=== PATIENT | male | born 1985 | race Caucasian/White ===

== ENCOUNTER 2021-10-24 22:02 | Emergency (ER) | payer OTHER, BC, SELFPAY ==
--- NOTE | ~2021-10-24 | XR_ITS ---
XR ankle RT min 3V DATE: 10/24/2021 23:48 INDICATION: Right ankle pain TECHNIQUE: 3 views COMPARISON: 03/13/2016 right lower leg FINDINGS: Mild medial soft tissue swelling. Minimal medial subcutaneous emphysema is suggested. No fr acture or dislocation of the ankle or disruption of the ankle mortise is detected. IMPRESSION: Mild medial soft tissue swelling, minimal medial subcutaneous emphysema No fracture or dislocation. Reviewed, dictated and finalized at location A. IMPRESSION: Mild medial soft tissue swelling, minimal medial subcutaneous emphy sema No fracture or dislocation.
[2021-10-24 22:16] VITALS: BP 162/89; PULSE 87; RESP 17; TEMP 36.7; O2SAT 100
[2021-10-24] MEDS: TETANUS,DIPHTHERIA,AC PERTUSSIS ADULT (0.5 ML) BOOSTRIX IM (23:50)
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
[2021-10-25] MEDS: IBUPROFEN 400 MG TABLET 800 MG PO (00:43)
[2021-10-25 01:45] VITALS: BP 160/82; PULSE 82; RESP 16; O2SAT 100
== END 2021-10-25 01:48 | disposition home or self-care (01) ==
PROVIDERS: Emergency Provider Nurse Practitioner Family
DX: S91.011A Laceration without foreign body, right ankle, initial encounter (principal); S93.401A Sprain of unspecified ligament of right ankle, initial encounter; Z23 Encounter for immunization; V86.56XA Driver of dirt bike or motor/cross bike injured in nontraffic accident, initial encounter
CPT/HCPCS: 12002; 73610; 90471; 90715; 99283; A9270

== ENCOUNTER 2022-03-22 16:59 | Emergency (ER) | payer OTHER, BC, SELFPAY ==
--- NOTE | ~2022-03-22 | XR_ITS ---
XR ankle RT min 3V DATE: 03/22/2022 18:04 INDICATION: Right ankle pain, laceration TECHNIQUE: Portable 4 view examination COMPARISON: 10/24/2021 right ankle FINDINGS: Mild medial soft tissue swelling. No fracture or dislocation of the ankle or disruption of the ankle mortise. No periosteal reaction or bone destruction. IMPRESSION: Mild medial soft tissue swelling Reviewed, dictated and finalized at location A.
[2022-03-22 17:06] VITALS: BP 107/70; PULSE 106; RESP 16; TEMP 36.3; O2SAT 95
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
[2022-03-22] MEDS: HYDROcodone/acetaminophen (*CRX) 5-325 MG TABLET 1 TAB PO (18:05)
[2022-03-22 18:59] LABS: Basophils Percent Auto 0.4 % (0.2-1.2); Eosinophils Absolute Auto 0.2 K/mm3 (0-0.3); Eosinophils Percent Auto 1.6 % (0-4.4); Hematocrit 47.7 % (42.0-52.0); Hemoglobin 16.3 g/dL (14.0-18.0); Immature Granulocyte Absolute 0.05 K/mm3 (0.00-0.031); Immature Granulocyte Percent A 0.5 % (0-0.5); Lymphocytes Percent Auto 11.9 % (18.3-44.2); Mean Corpuscular HGB Conc 34.2 g/dl (32-36); Mean Corpuscular Hemoglobin 31.2 pg (26-34); Mean Corpuscular Volume 91.4 fl (80-100); Mean Platelet Volume 10.2 fl (7.4-10.4); Monocytes Absolute Auto 0.8 K/mm3 (0.1-0.6); Monocytes Percent Auto 6.9 % (2.6-8.5); Neutrophils Absolute Auto 8.6 K/mm3 (1.3-6.7); Neutrophils Percent Auto 78.7 % (45.5-73.1); Platelet Count Result 271 k/mm3 (150-375); Red Blood Count 5.22 M/mm3 (4.6-6.20); Red Cell Distribution Width 13.5 % (11.5-14.5); White Blood Count 10.9 K/mm3 (4.5-10.0)
[2022-03-22] MEDS: PENICILLIN G BENZATHINE 2,400,000 UNITS/4 ML SYRINGE 2400000 UNITS IM (19:01)
[2022-03-22 19:08] LABS: Anion Gap 12 mmol/L (8-16); Blood Urea Nitrogen 11 mg/dL (9-20); Calcium 8.7 mg/dL (8.4-10.2); Carbon Dioxide 24 mmol/L (22-30); Chloride 102 mmol/L (98-107); Estimated CRCL calculation 97 ml/min; Estimated Glomerular Filt Rate > 60; Glucose 93 mg/dL (65-110); Potassium 4.2 mmol/L (3.4-5.0); Sodium 138 mmol/L (137-145)
[2022-03-23 07:52] LABS: Rapid Plasma Reagin Reactive (NonReactive)
[2022-03-25 11:47] LABS: Treponema pallidum Ab FTA ABS Reactive (Nonreactive)
== END 2022-03-22 19:13 | disposition home or self-care (01) ==
PROVIDERS: Physician Assistant; Emergency Provider Emergency Medicine
DX: S81.811A Laceration without foreign body, right lower leg, initial encounter (principal); F17.210 Nicotine dependence, cigarettes, uncomplicated; G62.9 Polyneuropathy, unspecified; V86.55XA Driver of 3- or 4- wheeled all-terrain vehicle (ATV) injured in nontraffic accident, initial encounter
CPT/HCPCS: 12002; 36415; 73610; 80048; 85025; 86592; 86780; 96372; 99283; A9270; J0561

== ENCOUNTER 2023-12-12 06:02 | Emergency (ER) | payer OTHER, MEDICAID, SELFPAY ==
[2023-12-12] VITALS (35 sets, daily range): BP systolic 128–145; BP diastolic 89–110; PULSE 72–112; RESP 9–23; TEMP 36.2; O2SAT 62–100
--- NOTE | ~2023-12-12 | CT_ITS ---
EXAMINATION: CT brain wo con DATE: 12/12/2023 06:57 INDICATION: Altered mental status TECHNIQUE: Computed tomography (CT) of the head was performed without intravenous contrast. Sagittal and coronal reconstructions were performed. The mA was adjusted according to patient size. Iterative reconstruction technique was employed. The dose-length product was 681.00 mGy-cm. COMPARISON: None FINDINGS: No acute intracranial hemorrhage, acute infarction or abnormal extra axial fluid collection. Ventricl es are normal and symmetric. No mass/mass effect. The orbits, paranasal sinuses and mastoid air cells are normal. IMPRESSION: 1. Normal head CT. Reviewed, dictated and finalized at location A. IMPRESSION: 1. Normal head CT.
--- NOTE | ~2023-12-12 | XR_ITS ---
EXAMINATION: XR chest 1V portable DATE: 12/12/2023 06:22 INDICATION: Overdose TECHNIQUE: frontal view of the chest was obtained. COMPARISON: Chest radiograph dated 01/22/2019 FINDINGS: The lungs are clear with no focal airspace opacities, pulmonary edema, pleural effusion or pneumothor ax. The cardiomediastinal silhouette is normal. Instrumented posterior spinal fusions at the cervicot horacic junction and upper thoracic spine and incompletely visualized at the thoracolumbar junction. IMPRESSION: 1. No acute cardiopulmonary disease. Reviewed, dictated and finalized at location A.
[2023-12-12] MEDS: ONDANSETRON INJ 4 MG/2 ML VIAL 8 MG IV PUSH (06:02)
[2023-12-12] MEDS: NALOXONE HCL INJ 2 MG/2 ML AMP 1 MG IV PUSH ×2 (06:02)
--- NOTE | 2023-12-12 06:09 | ECG_ITS ---
Test Date: 2023-12-12 06:31:19 Measurements Intervals [place] Rate: 95 P: 71 RI: 145 QRS: 50 QRSD: 109 T: 38 QT: 384 QTc: 485 Interpretive Statements SINUS RHYTHM POSSIBLE RIGHT VENTRICULAR CONDUCTION DELAY [RSR (QR) IN V1/V2] No previous ECG available for comparison Electronically Signed On 12-12-2023 13:04:26 CDT by Lenin Toth M.D.
--- NOTE | 2023-12-12 06:11 | PC.NURSE ---
0559 Patient brought to room via stretcher from car. ERP in room and at bedside with patient. VORB 2IVs placed, bilateral 18g IV placed in AC. 0600 VORB to give 1mg narcan and 8mg zofran given IVP. VS 74% while bagging patient, 112 HR, and 20 RR. 0602 VORB to give 1mg narcan. 0604 ERP placed 26 scottish nasal trumpet placed in Right nare. Patient O2 increased to 97% on RA with nasal trumpet in place. VS 97% on RA, 145/99 bp. 0614 patient waking up, eyes open, mumbling stating I'm fine. Patient confused, alert to self only.
[2023-12-12 06:16] LABS: Glucose Point of Care 363 mg/dl (65-105)
[2023-12-12] MEDS: SODIUM CHLORIDE 0.9% IV 1,000 ML 999 ML IV CONT (06:17)
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
--- NOTE | 2023-12-12 06:24 | ED.GENADULT ---
HPI - General Adult General Chief complaint: Overdose <Isiah Hummel MD - Last Filed: 12/12/23 07:17> Stated complaint: overdose <Isiah Hummel MD - Last Filed: 12/12/23 07:17> Time Seen by Provider: 12/12/23 06:09 <Isiah Hummel MD - Last Filed: 12/12/23 07:17> History of Present Illness HPI narrative: 37-year-old male history of drug abuse presenting via private vehicle for possible overdose. said that he might have taken some bad cocaine 1 hour prior to arrival. Then he stops breathing and turned blue. This was 45 minutes prior to arrival. She then brought him to the ED for evaluation. <Isiah Hummel MD - Last Filed: 12/12/23 07:17> Related Data Allergies/adverse reactions: Allergies Allergy/AdvReac Type Severity Reaction Status Date / Time codeine Allergy Unknown Swelling Verified 03/22/22 18:03 <Isiah Hummel MD - Last Filed: 12/12/23 07:17> Review of Systems Review of Systems: All systems reviewed & are unremarkable except as noted in HPI and below <Freddy Felipe MD - Last Filed: 12/12/23 13:34> [facility] Past Medical History Medical History: Medical History History of depression History of peripheral neuropathy <Isiah Hummel MD - Last Filed: 12/12/23 07:17> Social History Social History: Social History Smoking status: Current every day smoker Tobacco type: e-cigarettes/vaping Substance use: current Substance use type: unknown <Isiah Hummel MD - Last Filed: 12/12/23 07:17> Exam Narrative: APPEARANCE: Unresponsive, cyanotic Head: atraumatic. EYES: pinpoint pupils NOSE: Atraumatic NECK: Trachea midline RESPIRATORY: decreased respiratory rate CARDIOVASCULAR: weak pulse ABDOMINAL: Non-distended MUSCULOSKELETAl: No obvious deformities NEURO: unresponsive SKIN:: cool clammy PSYCHIATRIC: unresponsive <Isiah Hummel MD - Last Filed: 12/12/23 07:17> Course Vital Signs Vital signs: Vital Signs Pulse Rate 112 H 12/12/23 06:02 Respiratory Rate 9 L 12/12/23 06:02 Blood Pressure 144/102 H 12/12/23 06:02 Pulse Oximetry 62 L 12/12/23 06:02 Oxygen Delivery Bag Valve Mask 12/12/23 06:02 Temperature 97.2 F L 12/12/23 06:30 Pulse Rate 81 12/12/23 10:43 Respiratory Rate 20 12/12/23 10:43 Blood Pressure 128/91 H 12/12/23 10:43 Pulse Oximetry 99 12/12/23 10:43 Oxygen Delivery Room Air 12/12/23 09:30 <Isiah Hummel MD - Last Filed: 12/12/23 07:17> Vital Signs Pulse Rate 112 H 12/12/23 06:02 Respiratory Rate 9 L 12/12/23 06:02 Blood Pressure 144/102 H 12/12/23 06:02 Pulse Oximetry 62 L 12/12/23 06:02 Oxygen Delivery Bag Valve Mask 12/12/23 06:02 Temperature 97.2 F L 12/12/23 06:30 Pulse Rate 81 12/12/23 10:43 Respiratory Rate 20 12/12/23 10:43 Blood Pressure 128/91 H 12/12/23 10:43 Pulse Oximetry 99 12/12/23 10:43 Oxygen Delivery Room Air 12/12/23 09:30 <Freddy Felipe MD - Last Filed: 12/12/23 13:34> Medical Decision Making MDM Narrative Medical decision making narrative: -Course: 37-year-old male presenting for overdose. Given Narcan with improvement in respiratory rate mental status. Patient signed out to the oncoming physician pending completion of the patient's workup and return to normal mental status. -DDX includes but is not limited to: Drug overdose, anoxic brain injury, ICH -Co-morbidities complicating care: history of drug abuse, etoh abuse -Interventions: 2 mg Narcan, 8 mg Zofran, 2 L normal saline -Shared decision making / Disposition: signed out. <Isiah Hummel MD - Last Filed: 12/12/23 07:17> -Course: 37-year-old male presenting for overdose. Given Narcan with improvement in respiratory rate mental status. Patient signed out to the oncoming physician pending completion of the p
[2023-12-12 06:30] LABS: Basophils Percent Auto 0.4 % (0.2-1.2); Eosinophils Absolute Auto 0.1 K/mm3 (0-0.3); Eosinophils Percent Auto 0.7 % (0-4.4); Hematocrit 29.5 % (42.0-52.0); Hemoglobin 9.2 g/dL (14.0-18.0); Immature Granulocyte Absolute 0.15 K/mm3 (0.00-0.031); Immature Granulocyte Percent A 1.7 % (0-0.5); Lymphocytes Absolute Auto 1.09 K/mm3 (0.9-3.2); Lymphocytes Percent Auto 12.2 % (18.3-44.2); Mean Corpuscular HGB Conc 31.2 g/dl (32-36); Mean Corpuscular Hemoglobin 32.7 pg (26-34); Monocytes Absolute Auto 0.4 K/mm3 (0.1-0.6); Monocytes Percent Auto 4.7 % (2.6-8.5); Neutrophils Absolute Auto 7.2 K/mm3 (1.3-6.7); Neutrophils Percent Auto 80.3 % (45.5-73.1); Platelet Count Result 172 k/mm3 (150-375); Red Blood Count 2.81 M/mm3 (4.6-6.20); Red Cell Distribution Width 12.5 % (11.5-14.5)
[2023-12-12 06:33] LABS: Appearance Urine Clear (Clear); Bilirubin Urine Negative (Negative); Blood Urine Negative (Negative); Color Urine Yellow (Yellow); Glucose Urine UA Negative (Negative); Ketones Urine Negative (Negative); Leukocyte Esterase Ur Negative LEU/UL (Negative); Nitrate Urine Negative (Negative); Protein Urine Negative (Negative); Specific Grav Ur 1.006 (1.001-1.035); Urobilinogen Urine 0.2 mg/dL (<2.0)
--- NOTE | 2023-12-12 06:38 | PC.NURSE ---
Patient visitor in room. Patient taken to CT via stretcher while on monitor with nasal trumpet still in place. Patient awake and alert to self.
[2023-12-12 06:40] LABS: INR 1.1; Prothrombin Time 14.3 Seconds (11.1-14.7)
[2023-12-12 06:41] LABS: Alanine Aminotransferase 36 U/L (6-50); Albumin Level 4.8 g/dL (3.5-5.1); Alkaline Phosphatase 74 U/L (38-126); Anion Gap 18 mmol/L (4-12); Aspartate Amino Transferase 75 U/L (17-59); Bilirubin,Total 0.8 mg/dL (0.2-1.3); Blood Urea Nitrogen 10 mg/dL (9-20); Calcium 8.4 mg/dL (8.4-10.2); Carbon Dioxide 17 mmol/L (22-30); Chloride 101 mmol/L (98-107); Estimated Glomerular Filt Rate 53; Glucose 365 mg/dL (65-110); Lipase 361 U/L (23-300); Magnesium 2.7 mg/dL (1.6-2.3); Partial Thromboplastin Time 27.8 Seconds (22.3-36.8); Potassium 3.7 mmol/L (3.4-5.0); Sodium 136 mmol/L (137-145)
[2023-12-12 06:42] LABS: Lactic Acid Reflex 6.7 mmol/L (0.7-2.0)
[2023-12-12 06:43] LABS: Add Urine Microscopic? NO
[2023-12-12 06:49] LABS: Acetaminophen < 10 ug/mL (10-30); Ethanol 155 mg/dL (<10)
[2023-12-12 06:51] LABS: Amphetamine Screen Urine Negative (Negative); Barbiturate Screen Urine Negative (Negative); Benzodiazepines Screen Urine Negative (Negative); Cannabinoid Screen Urine Positive (Negative); Cocaine Screen Urine Positive (Negative); Methadone Screen Urine Negative (Negative); Opiate Screen Urine Negative (Negative); Phencyclidine Screen Urine Negative (Negative)
[2023-12-12 06:51] LABS: Troponin I < 0.012 ng/mL (0.000-0.034)
--- NOTE | 2023-12-12 06:51 | PC.NURSE ---
ERP removed nasal trumpet. Patient returned from CT, vomiting. ERP notified.
--- NOTE | 2023-12-12 06:52 | PC.NURSE ---
VORB to give 4mg Zofran IVP.
[2023-12-12] MEDS: ONDANSETRON INJ 4 MG/2 ML VIAL IV PUSH (06:56)
[2023-12-12] MEDS: SODIUM CHLORIDE 0.9% IV 2,000 ML 999 ML IV CONT (06:56)
[2023-12-12 07:00] LABS: Creatine Kinase 74 U/L (55-170)
[2023-12-12 09:27] LABS: Reflex Lactic Acid Yes or No Add Lactic
[2023-12-12 09:56] LABS: Lactic Acid Reflex 2.4 mmol/L (0.7-2.0)
[2023-12-12 10:08] LABS: Troponin I < 0.012 ng/mL (0.000-0.034)
== END 2023-12-12 10:44 | disposition home or self-care (01) ==
PROVIDERS: Emergency Medicine; Emergency Provider Emergency Medicine
DX: T40.5X4A Poisoning by cocaine, undetermined, initial encounter (principal); F17.290 Nicotine dependence, other tobacco product, uncomplicated; F32.A Depression, unspecified
CPT/HCPCS: 36415; 70450; 71045; 80053; 80307; 81003; 82550; 82948; 83605; 83690; 83735; 84484; 85025; 85610; 85730; 93005; 96361; 96374; 96375; 96376; 99284; J2310; J2405; J7030